=== PATIENT | male | born 1965 | race Caucasian/White ===

== ENCOUNTER 2022-04-17 08:17 | Outpatient (CLI) | payer BC | END 2022-04-17 08:18 | disposition home or self-care (01) | LOC: BICRAD 08:17 | PROVIDERS: ATTEND Urology | DX: N20.0 Calculus of kidney (principal) | CPT/HCPCS: 74018 ==

== ENCOUNTER 2022-08-23 15:10 | Outpatient (CLI) | payer BC | END 2022-08-23 15:11 | disposition home or self-care (01) | LOC: BICRAD 15:10 | PROVIDERS: ATTEND Urology | DX: N40.1 Benign prostatic hyperplasia with lower urinary tract symptoms (principal); N20.0 Calculus of kidney | CPT/HCPCS: 74018 ==

== ENCOUNTER 2022-12-29 07:44 | Outpatient (CLI) | payer BC ==
[2022-12-29 10:26] LABS: Bilirubin Neg (Negative); Blood, Urine Negative (Negative); Clarity Clear (Clear); Glucose, Urine (Dipstick) Normal (Negative); Ketone, Urine Negative (Negative); Leukocyte Negative (Negative); Nitrite Negative (Negative); Protein, Urine (Dipstick) Negative (Neg-Trace); Specific Gravity, Urine 1.015 (1.005-1.030); Urobilinogen Normal mg/dL (Less than 2)
[2022-12-29 10:30] LABS: Hemoglobin 14.6 g/dL (13.5-17.5); Mean Corpuscular Hemoglobin 29.6 pg (27.0-33.0); Mean Corpuscular Volume 89.5 fl (81.2-95.1); Mean Platelet Volume 12.2 fl (7.4-10.4); Platelet Count 264 10x3/uL (150-450); RBC Distribution Width 13.4 % (11.5-14.5); Red Blood Cell (RBC) Count 4.94 10x6/uL (4.32-5.72); White Blood Cell (WBC) Count 6.5 10x3/uL (3.5-10.5)
[2022-12-29 10:38] LABS: RBC/HPF None Seen HPF (0-3); Squamous Epithelial 0-3 HPF (0-3); WBC/HPF 0-3 HPF (0-3)
[2022-12-29 10:39] LABS: Bacteria/HPF Rare-Few HPF (None Seen)
[2022-12-29 10:49] LABS: PTT 26.7 sec (22.0-33.0); Prothrombin Time 10.5 sec (9.5-12.1)
[2022-12-29 10:59] LABS: Anion Gap 13 mmol/L (10-20); BUN (Urea Nitrogen) 16 mg/dL (8.4-25.7); Calc. Creatinine Clearance 0 mL/min (70-130); Calcium 10.3 mg/dL (7.8-10.44); Carbon Dioxide 27 mmol/L (22-29); Chloride 105 mmol/L (98-107); Estimated GFR 101; Glucose 109 mg/dL (70-105); Potassium 4.8 mmol/L (3.5-5.1); Sodium 140 mmol/L (136-145)
== END 2022-12-29 07:45 | disposition home or self-care (01) ==
LOC: LABBT 07:44
PROVIDERS: ATTEND Urology
DX: Z01.812 Encounter for preprocedural laboratory examination (principal); N20.1 Calculus of ureter
CPT/HCPCS: 80048; 81001; 85027; 85610; 85730; 87086

== ENCOUNTER 2023-01-10 06:25 | Day surgery (SDC) | payer BC ==
[2022-12-29 08:21] VITALS: BMI 31.0
[2023-01-10] MEDS ORDERED: Vancomycin 1 GM/200 ML (FROZEN) BAG ONE (07:19)
[2023-01-10] MEDS ORDERED: Iopamidol 30 ML ONE (08:50)
[2023-01-10] MEDS ORDERED: fentaNYL 50 mcg/mL 1 mL Vial ONE (08:56)
[2023-01-10] MEDS ORDERED: LevoFLOXacin 500 mg/D5W 100 ML BAG ONE (09:02)
[2023-01-10] MEDS ORDERED: Dexamethasone 20 MG/5 ML VIAL ONE (09:12)
[2023-01-10] MEDS ORDERED: Rocuronium Bromide 10 MG/ML (10ML VIAL) ONE (09:12)
[2023-01-10] MEDS ORDERED: Ketorolac Tromethamine 30 MG/ML VIAL ONE (09:12)
[2023-01-10] MEDS ORDERED: Glycopyrrolate 0.2 MG/ML 5 ML SYRINGE ONE (09:12)
[2023-01-10] MEDS ORDERED: Lidocaine 1% PF 5 ML VIAL ONE (09:12)
[2023-01-10] MEDS ORDERED: PROPOFOL 200 MG/20 ML VIAL ONE (09:12)
[2023-01-10] MEDS ORDERED: NEOSTIGMINE 3 MG/3 ML SYR 3 MG/3 ML SYRINGE ONE (09:12)
[2023-01-10] MEDS ORDERED: Ondansetron PF 4 MG/2 ML Vial ONE (09:12)
[2023-01-10] MEDS ORDERED: Iopamidol 15 ML ONE (10:52)
[2023-01-10] MEDS ORDERED: Phenazopyridine HCl 100 MG TAB ONE (11:25)
[2023-01-10] MEDS ORDERED: Oxybutynin 5 MG TAB ONE (11:25)
== END 2023-01-10 13:19 | disposition home or self-care (01) ==
LOC: SDC 06:25
PROVIDERS: ATTEND Urology
PROC: 0TC78ZZ Extirpation of Matter from Left Ureter, Via Natural or Artificial Opening Endoscopic (ICD-10-PCS; principal; 2023-01-10)
DX: N20.2 Calculus of kidney with calculus of ureter (principal); N40.0 Benign prostatic hyperplasia without lower urinary tract symptoms
CPT/HCPCS: 74018; 74420; 82365; 88300; C1747; C1769; C2617; J1100; J1885; J1956; J2405; J2704; J3010; J3370-JW; Q9967

== ENCOUNTER 2023-02-07 07:36 | Outpatient (CLI) | payer BC ==
[2023-02-07] MEDS ORDERED: Iopamidol 370 76% 100 ML VIAL ONE (11:30)
== END 2023-02-07 07:37 | disposition home or self-care (01) ==
LOC: CT 07:36
PROVIDERS: ATTEND Specialist
DX: E21.3 Hyperparathyroidism, unspecified (principal); E07.9 Disorder of thyroid, unspecified
CPT/HCPCS: 70491; Q9967

== ENCOUNTER 2023-03-13 07:39 | Outpatient (CLI) | payer BC ==
[2023-03-13 10:41] LABS: Anion Gap 14 mmol/L (10-20); BUN (Urea Nitrogen) 13 mg/dL (8.4-25.7); Calc. Creatinine Clearance 0 mL/min (70-130); Carbon Dioxide 26 mmol/L (22-29); Chloride 104 mmol/L (98-107); Estimated GFR 83; Glucose 148 mg/dL (70-105); Potassium 4.6 mmol/L (3.5-5.1); Sodium 139 mmol/L (136-145)
== END 2023-03-13 07:40 | disposition home or self-care (01) ==
LOC: LABBT 07:39
PROVIDERS: ATTEND Specialist
DX: Z01.818 Encounter for other preprocedural examination (principal); E07.89 Other specified disorders of thyroid
CPT/HCPCS: 80048; 93005; 93010

== ENCOUNTER 2023-03-15 07:42 | Day surgery (SDC) | payer BC ==
[2023-03-13 08:06] VITALS: BMI 31.7
[2023-03-15] MEDS ORDERED: fentaNYL PF 100 MCG/2 ML SYRINGE ONE (10:15)
[2023-03-15] MEDS ORDERED: SUGAMMADEX SODIUM 200 MG/2 ML VIAL ONE (10:15)
[2023-03-15] MEDS ORDERED: PROPOFOL 200 MG/20 ML VIAL ONE (10:27)
[2023-03-15] MEDS ORDERED: ePHEDrine Sulfate 50 MG/10 ML VIAL ONE (10:27)
[2023-03-15] MEDS ORDERED: Dexamethasone 20 MG/5 ML VIAL ONE (10:27)
[2023-03-15] MEDS ORDERED: Lidocaine 1% PF 5 ML VIAL ONE (10:27)
[2023-03-15] MEDS ORDERED: Midazolam HCl 2 mg/2 ml Vial ONE (10:27)
[2023-03-15] MEDS ORDERED: PHENYLEPHRINE-NS 100 MCG/ML 10 ML SYRINGE ONE (10:27)
[2023-03-15] MEDS ORDERED: Rocuronium Bromide 10 MG/ML (10ML VIAL) ONE (10:27)
[2023-03-15] MEDS ORDERED: Ondansetron PF 4 MG/2 ML Vial ONE (10:27)
[2023-03-15] MEDS ORDERED: EPINEPHrine 1 MG/ML AMP ONE (10:29)
[2023-03-15] MEDS ORDERED: Bacitracin Zinc Ointment 30 gm TUBE ONE (10:29)
[2023-03-15] MEDS ORDERED: Lidocaine 1% (PF) 30 ML VIAL ONE (10:29)
[2023-03-15] MEDS ORDERED: Sevoflurane 250 ML INH ANEST BOTTLE ONE (10:44)
[2023-03-15] MEDS ORDERED: fentaNYL 50 mcg/mL 1 mL Vial ONE (12:50)
[2023-03-15] MEDS ORDERED: Hydrocodone-Acetamin 15 ML UDCUP ONE (13:28)
== END 2023-03-15 15:00 | disposition home or self-care (01) ==
LOC: SDC 07:42
PROVIDERS: ATTEND Specialist
PROC: 0GBL0ZZ Excision of Right Superior Parathyroid Gland, Open Approach (ICD-10-PCS; principal; 2023-03-15)
PROC: 0GTH0ZZ Resection of Right Thyroid Gland Lobe, Open Approach (ICD-10-PCS; principal; 2023-03-15)
DX: D35.1 Benign neoplasm of parathyroid gland (principal); E04.1 Nontoxic single thyroid nodule; E21.3 Hyperparathyroidism, unspecified; I10 Essential (primary) hypertension; J45.909 Unspecified asthma, uncomplicated; E11.9 Type 2 diabetes mellitus without complications; E78.00 Pure hypercholesterolemia, unspecified; Z87.442 Personal history of urinary calculi; Z88.0 Allergy status to penicillin; Z79.899 Other long term (current) drug therapy
CPT/HCPCS: 88305; 88307; 88331; C1889; J0171; J1100; J2001; J2250; J2405; J2704; J3010

== ENCOUNTER 2023-04-16 14:18 | Outpatient (CLI) | payer BC | END 2023-04-16 14:19 | disposition home or self-care (01) | LOC: ULT 14:18 | PROVIDERS: ATTEND Urology | DX: N20.0 Calculus of kidney (principal); Z12.5 Encounter for screening for malignant neoplasm of prostate; E83.52 Hypercalcemia; N40.1 Benign prostatic hyperplasia with lower urinary tract symptoms; Z98.890 Other specified postprocedural states; Z93.6 Other artificial openings of urinary tract status | CPT/HCPCS: 36415; 74018; 76770; 80048; 81001; 87086; G0103 ==